=== PATIENT | male | born 1970 | race Caucasian/White ===

== ENCOUNTER 2020-10-20 09:47 | Inpatient (IN) | payer MEDICAID ==
[~2020-10-20] VITALS: Ht 177.8 cm; Wt 80.5 kg
[2020-10-20 10:29] LABS: EOSINOPHILS # (AUTO) 0.2 X10'3 (0-0.9); EOSINOPHILS % (AUTO) 4.7 % (0-6); HEMATOCRIT 52.2 % (42.0-52.0); HEMOGLOBIN 17.8 g/dl (14.0-17.9); LYMPHOCYTES # (AUTO) 1.2 X10'3 (1.1-4.8); LYMPHOCYTES % (AUTO) 25.2 % (21-51); MEAN CORPUSCULAR HEMOGLOBIN 31.9 PG (27.0-31.0); MEAN CORPUSCULAR HGB CONC 34.1 g/dL (33.0-36.5); MEAN CORPUSCULAR VOLUME 93.4 FL (78-98); MEAN PLATELET VOLUME 9.8 FL (7.4-10.4); MONOCYTES # (AUTO) 0.3 X10'3 (0-0.9); MONOCYTES % (AUTO) 7.1 % (2-12); PLATELET COUNT 165 X10'3 (140-440); RED BLOOD COUNT 5.59 X10'6 (4.70-6.10); WHITE BLOOD COUNT 4.8 X10'3 (4.5-11.0)
[2020-10-20 10:42] LABS: ALANINE AMINOTRANSFERASE 23 U/L (12-78); ALBUMIN 4.5 G/DL (3.4-5.0); ALBUMIN/GLOBULIN RATIO 1.2 (1.1-1.5); ALKALINE PHOSPHATASE 56 IU/L (46-116); ANION GAP 10 (8-16); ASPARTATE AMINO TRANSFERASE 17 U/L (10-37); BILIRUBIN,TOTAL 0.8 MG/DL (0.1-1.0); BLOOD UREA NITROGEN 14 MG/DL (7-18); BUN/CREATININE RATIO 14.7 (5.4-32.0); CALCIUM 9.2 MG/DL (8.5-10.1); CHLORIDE 106 MMOL/L (99-107); CREATININE 0.95 MG/DL (0.60-1.10); GLUCOSE 101 MG/DL (70-104); POTASSIUM 3.7 MMOL/L (3.5-5.1); SODIUM 143 MMOL/L (135-145); TOTAL CARBON DIOXIDE 26.8 MMOL/L (24-32); TOTAL PROTEIN 8.3 G/DL (6.4-8.2); eGFR 83 ML/MIN
--- NOTE | 2020-10-20 11:17 | NUR ---
pt is being evaluated by Dr Rivers, pt is 50yo male c/o midsternal chest "tightness", nonradiating, "heart flutter", happened last week, 10/19 and 10/20, lasted 30 to 60 minutes, started while pt was working outside, +dyspnea, went to clinic and was referred to ER for abn EKG, pt denies energy drinks, no ETOH, no drugs, no smoking, drinks 1 1/2 cups coffee a day
[2020-10-20] MEDS ORDERED: nitroGLYCERIN 0.4mg/hour patch TD ONE (11:35)
[2020-10-20] MEDS ORDERED: aspirin 81mg tab.chew PO ONE (11:35)
[2020-10-20] MEDS: normal saline 1000ml 1,000 ML IV SCH ×2 (12:25→17:04)
[2020-10-20] MEDS ORDERED: mag hydrox/Alum hydrox/simeth 30ml oral suspension PO PRN (12:25)
[2020-10-20] MEDS ORDERED: magnesium hydroxide 30ml (MOM) UD suspension PO PRN (12:25)
[2020-10-20] MEDS ORDERED: acetaminophen 325mg tablet PO PRN ×2 (12:25→19:50)
[2020-10-20] MEDS ORDERED: morphine 2 MG/ML inj. syringe IV PRN ×2 (12:25)
[2020-10-20] MEDS ORDERED: ondansetron/PF 4mg/2ml inj IV PRN (12:25)
[2020-10-20] MEDS ORDERED: TURM500C4 PO (12:30)
--- NOTE | 2020-10-20 12:57 | NUR ---
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
[2020-10-20] MEDS ORDERED: nitroGLYCERIN 0.4mg SUBLingual tab SL PRN (15:20)
--- NOTE | 2020-10-20 15:41 | NUR ---
REPORT CALLED TO LUZ SOUSA
[2020-10-20 17:07] VITALS: BP 96/50
[2020-10-20 18:00] VITALS: BP 108/60
--- NOTE | 2020-10-20 18:25 | NUR ---
Patient in room PCU 3011. I have received report from Stephanie SOUSA and had the opportunity to ask questions and assume patient care.
--- NOTE | 2020-10-20 19:52 | NUR ---
Called to Dr. Cabello for Tylenol 650MG PO q6h PRN for pain. MD haskins
[2020-10-20] MEDS: carVEDilol 3.125mg tablet PO SCH (20:15)
[2020-10-20] MEDS: heparin, porcine 5000 units/ml vial SQ SCH (20:17)
[2020-10-20 22:00] VITALS: BP 96/52
[2020-10-21 02:00] VITALS: BP 105/57
[2020-10-21] MEDS: normal saline 1000ml 1,000 ML IV SCH ×2 (03:16→12:45)
[2020-10-21 06:00] VITALS: BP 99/58
--- NOTE | 2020-10-21 06:00 | NUR ---
Patient in room PCU 3011. I have received report from Shweta SOUSA and had the opportunity to ask questions and assume patient care.
--- NOTE | 2020-10-21 06:03 | NUR ---
Problems reprioritized. Patient report given, questions answered & plan of care reviewed with Marlin SOUSA.
[2020-10-21] MEDS: atorvastatin 10mg tablet PO SCH (08:07)
[2020-10-21] MEDS: aspirin 325mg tablet, delayed-release (Ecotrin) PO SCH (08:07)
[2020-10-21] MEDS: carVEDilol 3.125mg tablet PO SCH ×2 (08:07→19:43)
[2020-10-21] MEDS: heparin, porcine 5000 units/ml vial SQ SCH ×2 (08:07→19:43)
[2020-10-21 08:29] LABS: ALBUMIN 3.2 G/DL (3.4-5.0); ANION GAP 8 (8-16); BASOPHILS % (AUTO) 0.8 % (0-1); BLOOD UREA NITROGEN 13 MG/DL (7-18); BUN/CREATININE RATIO 15.3 (5.4-32.0); CALCIUM 7.9 MG/DL (8.5-10.1); CHLORIDE 110 MMOL/L (99-107); CREATININE 0.85 MG/DL (0.60-1.10); EOSINOPHILS # (AUTO) 0.2 X10'3 (0-0.9); EOSINOPHILS % (AUTO) 4.8 % (0-6); GLUCOSE 97 MG/DL (70-104); HEMATOCRIT 43.7 % (42.0-52.0); HEMOGLOBIN 14.8 g/dl (14.0-17.9); LYMPHOCYTES # (AUTO) 1.1 X10'3 (1.1-4.8); LYMPHOCYTES % (AUTO) 23.3 % (21-51); MEAN CORPUSCULAR HEMOGLOBIN 31.6 PG (27.0-31.0); MEAN CORPUSCULAR HGB CONC 33.9 g/dL (33.0-36.5); MEAN CORPUSCULAR VOLUME 93.2 FL (78-98); MEAN PLATELET VOLUME 10.2 FL (7.4-10.4); MONOCYTES # (AUTO) 0.4 X10'3 (0-0.9); MONOCYTES % (AUTO) 8.7 % (2-12); NEUTROPHILS % (AUTO) 62.4 % (42-75); PLATELET COUNT 148 X10'3 (140-440); POTASSIUM 4.1 MMOL/L (3.5-5.1); RED BLOOD COUNT 4.69 X10'6 (4.70-6.10); RED CELL DISTRIBUTION WIDTH 13.2 % (11.5-14.5); SODIUM 143 MMOL/L (135-145); TOTAL CARBON DIOXIDE 24.6 MMOL/L (24-32); WHITE BLOOD COUNT 4.8 X10'3 (4.5-11.0); eGFR > 90 ML/MIN
[2020-10-21] MEDS ORDERED: regadenoson 0.4mg/5ml syringe IV PRN (09:30)
[2020-10-21] MEDS ORDERED: aminophylline 250mg/10ml inj. IV PRN (09:30)
[2020-10-21] MEDS ORDERED: nitroGLYCERIN 0.4mg SUBLingual tab SL PRN (09:30)
[2020-10-21] MEDS ORDERED: metoprolol tartrate 1mg/ml inj IV PRN (09:30)
[2020-10-21 11:00] VITALS: BP 114/71
[2020-10-21 15:00] VITALS: BP 107/69
[2020-10-21 18:00] VITALS: BP 115/76
--- NOTE | 2020-10-21 18:00 | NUR ---
Patient in room PCU 3011. I have received report from Marlin SOUSA and had the opportunity to ask questions and assume patient care.
--- NOTE | 2020-10-21 18:20 | NUR ---
Problems reprioritized. Patient report given, questions answered & plan of care reviewed with Calos SOUSA. Patient stable at transfer of care.
[2020-10-21 22:00] VITALS: BP 108/63
[2020-10-22] VITALS (8 sets, daily range): BP systolic 103–131; BP diastolic 71–83
[2020-10-22] MEDS: normal saline 1000ml 1,000 ML IV SCH (04:35)
[2020-10-22] MEDS ORDERED: regadenoson 0.4mg/5ml syringe IV PRN (06:00)
--- NOTE | 2020-10-22 06:00 | NUR ---
Patient in room PCU 3011. I have received report from INES SOUSA and had the opportunity to ask questions and assume patient care.
[2020-10-22 06:01] LABS: EOSINOPHILS # (AUTO) 0.2 X10'3 (0-0.9); EOSINOPHILS % (AUTO) 5.2 % (0-6); HEMATOCRIT 42.5 % (42.0-52.0); HEMOGLOBIN 14.3 g/dl (14.0-17.9); LYMPHOCYTES # (AUTO) 1.3 X10'3 (1.1-4.8); LYMPHOCYTES % (AUTO) 33.4 % (21-51); MEAN CORPUSCULAR HEMOGLOBIN 31.7 PG (27.0-31.0); MEAN CORPUSCULAR HGB CONC 33.7 g/dL (33.0-36.5); MEAN PLATELET VOLUME 9.9 FL (7.4-10.4); MONOCYTES # (AUTO) 0.4 X10'3 (0-0.9); MONOCYTES % (AUTO) 9.4 % (2-12); PLATELET COUNT 142 X10'3 (140-440); RED BLOOD COUNT 4.52 X10'6 (4.70-6.10); RED CELL DISTRIBUTION WIDTH 12.8 % (11.5-14.5)
--- NOTE | 2020-10-22 06:07 | NUR ---
Problems reprioritized. Patient report given, questions answered & plan of care reviewed with Gi RN.
[2020-10-22 06:26] LABS: ALBUMIN 3.1 G/DL (3.4-5.0); ANION GAP 6 (8-16); BLOOD UREA NITROGEN 11 MG/DL (7-18); BUN/CREATININE RATIO 11.7 (5.4-32.0); CHLORIDE 111 MMOL/L (99-107); CREATININE 0.94 MG/DL (0.60-1.10); GLUCOSE 96 MG/DL (70-104); POTASSIUM 4.5 MMOL/L (3.5-5.1); SODIUM 144 MMOL/L (135-145); TOTAL CARBON DIOXIDE 26.6 MMOL/L (24-32); eGFR 84 ML/MIN
[2020-10-22] MEDS: atorvastatin 10mg tablet PO SCH (10:28)
[2020-10-22] MEDS: aspirin 325mg tablet, delayed-release (Ecotrin) PO SCH (10:28)
[2020-10-22] MEDS: carVEDilol 3.125mg tablet PO SCH (10:28)
[2020-10-22] MEDS: heparin, porcine 5000 units/ml vial SQ SCH (10:28)
[2020-10-22] MEDS ORDERED: ASPI-1071 PO (13:47)
[2020-10-22] MEDS ORDERED: ATOR10TA PO (13:47)
[2020-10-22] MEDS ORDERED: COR3.125T PO (13:47)
--- NOTE | 2020-10-22 14:40 | NUR ---
PT RECEIVED DC PAPERWORK AND VERBALIZED UNDERSTANDING OF DC PAPERWORK. IV AND HEART MONITOR WAS REMOVED. PT WAS AMBULATED TO PRIVATE VEHICLE IN ZERO DISTRESS
== END 2020-10-22 15:05 | disposition home or self-care (01) | DRG 198 ==
LOC: ER 09:48 → ED HOLD 12:24 → OBSVTOIN 12:24 → PCU 3S 16:50
PROVIDERS: ADMIT Family Medicine; ATTEND Family Medicine
PROC: 4A02XM4 Measurement of Cardiac Total Activity, External Approach (ICD-10-PCS; principal; 2020-10-22)
PROC: 3E073KZ Introduction of Other Diagnostic Substance into Coronary Artery, Percutaneous Approach (ICD-10-PCS; 2020-10-22)
DX: I20.0 Unstable angina (principal)
CPT/HCPCS: 36415; 71045; 78452; 80048; 80053; 83880; 84484; 85025; 87081; 93005; 93017; 93306; 99285; A9500; G0378; J1644; J2785; J7030

== ENCOUNTER 2020-10-28 15:23 | Emergency (ER) | payer MEDICAID ==
[~2020-10-28] VITALS: Ht 177.8 cm; Wt 78.4 kg
[~2020-10-28 15:23] MED LIST: ASPI-1071 PO; ATOR10TA PO; COR3.125T PO; TURM500C4 PO
[2020-10-28 15:55] VITALS: BP 124/82
[2020-10-28 16:25] LABS: BASOPHILS # (AUTO) 0.1 X10'3 (0-0.2); BASOPHILS % (AUTO) 0.8 % (0-1); EOSINOPHILS # (AUTO) 0.3 X10'3 (0-0.9); EOSINOPHILS % (AUTO) 3.7 % (0-6); HEMATOCRIT 49.2 % (42.0-52.0); HEMOGLOBIN 16.6 g/dl (14.0-17.9); LYMPHOCYTES # (AUTO) 1.5 X10'3 (1.1-4.8); LYMPHOCYTES % (AUTO) 22.6 % (21-51); MEAN CORPUSCULAR HEMOGLOBIN 31.3 PG (27.0-31.0); MEAN CORPUSCULAR HGB CONC 33.7 g/dL (33.0-36.5); MEAN CORPUSCULAR VOLUME 92.6 FL (78-98); MEAN PLATELET VOLUME 9.7 FL (7.4-10.4); MONOCYTES # (AUTO) 0.5 X10'3 (0-0.9); NEUTROPHILS # (AUTO) 4.5 X10'3 (1.8-7.7); NEUTROPHILS % (AUTO) 65.9 % (42-75); PLATELET COUNT 191 X10'3 (140-440); RED BLOOD COUNT 5.31 X10'6 (4.70-6.10); RED CELL DISTRIBUTION WIDTH 13.2 % (11.5-14.5); WHITE BLOOD COUNT 6.9 X10'3 (4.5-11.0)
[2020-10-28 16:40] LABS: ALANINE AMINOTRANSFERASE 44 U/L (12-78); ALBUMIN 4.1 G/DL (3.4-5.0); ALBUMIN/GLOBULIN RATIO 1.2 (1.1-1.5); ALKALINE PHOSPHATASE 46 IU/L (46-116); ANION GAP 9 (8-16); ASPARTATE AMINO TRANSFERASE 24 U/L (10-37); BILIRUBIN,TOTAL 0.6 MG/DL (0.1-1.0); BLOOD UREA NITROGEN 16 MG/DL (7-18); BUN/CREATININE RATIO 15.2 (5.4-32.0); CALCIUM 8.7 MG/DL (8.5-10.1); CHLORIDE 106 MMOL/L (99-107); CREATININE 1.05 MG/DL (0.60-1.10); GLUCOSE 97 MG/DL (70-104); POTASSIUM 4.2 MMOL/L (3.5-5.1); SODIUM 143 MMOL/L (135-145); TOTAL CARBON DIOXIDE 27.6 MMOL/L (24-32); TOTAL PROTEIN 7.5 G/DL (6.4-8.2); eGFR 74 ML/MIN
== END 2020-10-28 18:41 | disposition home or self-care (01) ==
LOC: ER 15:24
DX: R07.89 Other chest pain (principal); Z79.82 Long term (current) use of aspirin; Z79.899 Other long term (current) drug therapy
CPT/HCPCS: 36415; 71045; 80053; 83880; 84484; 85025; 93005; 99285

== ENCOUNTER 2021-01-12 07:09 | Day surgery (SDC) | payer MEDICAID ==
[2021-01-07 14:58] LABS: BASOPHILS % (AUTO) 0.5 % (0-1); EOSINOPHILS # (AUTO) 0.3 X10'3 (0-0.9); HEMATOCRIT 46.9 % (42.0-52.0); HEMOGLOBIN 16.3 g/dl (14.0-17.9); LYMPHOCYTES # (AUTO) 1.5 X10'3 (1.1-4.8); LYMPHOCYTES % (AUTO) 28.3 % (21-51); MEAN CORPUSCULAR HEMOGLOBIN 31.9 PG (27.0-31.0); MEAN CORPUSCULAR HGB CONC 34.8 g/dL (33.0-36.5); MEAN CORPUSCULAR VOLUME 91.7 FL (78-98); MONOCYTES # (AUTO) 0.4 X10'3 (0-0.9); MONOCYTES % (AUTO) 7.8 % (2-12); NEUTROPHILS # (AUTO) 3.2 X10'3 (1.8-7.7); NEUTROPHILS % (AUTO) 58.4 % (42-75); PLATELET COUNT 196 X10'3 (140-440); RED BLOOD COUNT 5.11 X10'6 (4.70-6.10); WHITE BLOOD COUNT 5.4 X10'3 (4.5-11.0)
[2021-01-07 15:07] LABS: PARTIAL THROMBOPLASTIN TIME 27 SECONDS (22-32)
[2021-01-07 15:08] LABS: ALANINE AMINOTRANSFERASE 28 U/L (12-78); ALBUMIN/GLOBULIN RATIO 1.3 (1.1-1.5); ALKALINE PHOSPHATASE 66 IU/L (46-116); ANION GAP 7 (8-16); ASPARTATE AMINO TRANSFERASE 14 U/L (10-37); BILIRUBIN,TOTAL 0.6 MG/DL (0.1-1.0); BLOOD UREA NITROGEN 16 MG/DL (7-18); CALCIUM 8.6 MG/DL (8.5-10.1); CHLORIDE 108 MMOL/L (99-107); CREATININE 1.14 MG/DL (0.60-1.10); GLUCOSE 106 MG/DL (70-104); POTASSIUM 3.5 MMOL/L (3.5-5.1); SODIUM 142 MMOL/L (135-145); TOTAL CARBON DIOXIDE 27.4 MMOL/L (24-32); TOTAL PROTEIN 7.2 G/DL (6.4-8.2); eGFR 67 ML/MIN
[~2021-01-12] VITALS: Ht 177.8 cm; Wt 82.9 kg
[2021-01-12] VITALS (12 sets, daily range): BP systolic 102–123; BP diastolic 65–80
[2021-01-12] MEDS ORDERED: nitroGLYCERIN 0.4mg SUBLingual tab SL PRN (07:35)
[2021-01-12] MEDS ORDERED: LORazepam 0.5 MG tablet PO PRN (07:35)
[2021-01-12] MEDS ORDERED: normal saline 1,000 ML IV SCH (07:35)
[2021-01-12] MEDS ORDERED: diphenhydrAMINE 25mg capsule PO PRN (07:35)
[2021-01-12] MEDS ORDERED: fentaNYL/PF 50MCG/1 ML 2ML syringe ONE (07:46)
[2021-01-12] MEDS ORDERED: LIDOcaine 1% (10mg/ml)w/preservative injection 20ml MDV ONE (07:46)
[2021-01-12] MEDS ORDERED: nitroGLYCERIN-Tridil 50MG/D5W 250 ML IV ONE (07:46)
[2021-01-12] MEDS ORDERED: iohexol 350MG/ML 100ml bottle IV ONE (07:46)
[2021-01-12] MEDS ORDERED: iohexol 350 MG/ML 50ML vial IV ONE (07:46)
[2021-01-12] MEDS ORDERED: midazolam 1 mg/ML 2ml injection ONE ×2 (07:46→09:37)
[2021-01-12] MEDS ORDERED: CARV3.12 PO (08:27)
[2021-01-12] MEDS ORDERED: ATOR10TA PO (08:27)
[2021-01-12] MEDS ORDERED: ASPI-1265 PO (08:27)
[2021-01-12] MEDS ORDERED: proCHLORperazine 10 MG/2 ml inj IV PRN (10:30)
[2021-01-12] MEDS ORDERED: ondansetron/PF 4mg/2ml inj IV PRN (10:30)
[2021-01-12] MEDS ORDERED: OXAZEpam 15mg capsule PO PRN (10:30)
[2021-01-12] MEDS ORDERED: HYDROcodone/acetaminophen 10/325mg tab PO PRN (10:30)
[2021-01-12] MEDS ORDERED: HYDROcodone/acetaminophen 5mg/325mg tablet PO PRN (10:30)
[2021-01-12] MEDS ORDERED: normal saline 1000ml 1,000 ML IV SCH (10:30)
[2021-01-12] MEDS ORDERED: acetaminophen 325mg tablet PO PRN (10:30)
== END 2021-01-12 16:35 | disposition home or self-care (01) ==
LOC: SSTAY O 07:09
PROVIDERS: ATTEND Internal Medicine Cardiovascular Disease
DX: R94.39 Abnormal result of other cardiovascular function study (principal); R07.89 Other chest pain; I25.10 Atherosclerotic heart disease of native coronary artery without angina pectoris; I44.7 Left bundle-branch block, unspecified; E78.5 Hyperlipidemia, unspecified; M47.819 Spondylosis without myelopathy or radiculopathy, site unspecified; Z79.01 Long term (current) use of anticoagulants; Z79.899 Other long term (current) drug therapy; Z87.442 Personal history of urinary calculi; Z87.891 Personal history of nicotine dependence
CPT/HCPCS: 36415; 71046; 80053; 83880; 85025; 85610; 85730; 93458; 99152; C1760; C1769; J1644; J2001; J2250; J3010; J7030; Q0163; Q9967; 99153; A4620; A6258; J3490